=== PATIENT | male | born 1980 | race Caucasian/White ===

== ENCOUNTER → 2016-12-14 | Outpatient (CLI) | payer OTHER ==
[2016-12-14 12:31] LABS: BASOPHILS % (AUTO) 0 % (0-10); EOSINOPHILS # (AUTO) 0.1 10^3/uL (0.0-0.3); EOSINOPHILS % (AUTO) 1 % (0-10); LYMPHOCYTES # (AUTO) 2.1 X 10^3 (1.0-4.0); LYMPHOCYTES % (AUTO) 34 % (12-44); MEAN CORPUSCULAR HEMOGLOBIN 29 PG (25-34); MEAN CORPUSCULAR HGB CONC 35 G/DL (32-36); MEAN CORPUSCULAR VOLUME 82 FL (80-99); MEAN PLATELET VOLUME 11.2 FL (7.4-10.4); MONOCYTES # (AUTO) 0.4 X 10^3 (0.0-1.0); MONOCYTES % (AUTO) 7 % (0-12); NEUTROPHILS # (AUTO) 3.6 X 10^3 (1.8-7.8); NEUTROPHILS % (AUTO) 58 % (42-75); PLATELET COUNT 238 10^3/uL (130-400); RED CELL DISTRIBUTION WIDTH 13.8 % (10.0-14.5); WHITE BLOOD COUNT 6.3 10^3/uL (4.3-11.0)
[2016-12-14 12:36] LABS: BILIRUBIN,URINE NEGATIVE (NEGATIVE); KETONES,URINE 3+ (NEGATIVE); LEUKOCYTE ESTERASE ,URINE 3+ (NEGATIVE); NITRITE,URINE NEGATIVE (NEGATIVE); PH,URINE 5 (5-9); PROTEIN,URINE 2+ (NEGATIVE); UROBILINOGEN,URINE NORMAL (NORMAL)
[2016-12-14 12:45] LABS: ALANINE AMINOTRANSFERASE 56 U/L (0-55); ALBUMIN 4.4 GM/DL (3.2-4.5); ANION GAP 10 MMOL/L (5-14); ASPARTATE AMINO TRANSFERASE 30 U/L (5-34); BILIRUBIN,TOTAL 0.9 MG/DL (0.1-1.0); BLOOD UREA NITROGEN 11 MG/DL (7-18); BUN/CREATININE RATIO 12 (0-20); CALCIUM 9.4 MG/DL (8.5-10.1); CARBON DIOXIDE 26 MMOL/L (21-32); CHLORIDE 103 MMOL/L (98-107); CHOLESTEROL 228 MG/DL (< 200); DIRECT LDL 148 MG/DL (1-129); GFR ESTIMATED > 60; GLUCOSE 388 MG/DL (70-105); HEMOLYSIS 5 (-100-29); ICTERUS 0.7 (-100-1.9); LIPEMIA 3 (-100-49); SODIUM 139 MMOL/L (135-145); TOTAL PROTEIN 7.8 GM/DL (6.4-8.2); TRIGLYCERIDES 246 MG/DL (<150); VLDL CHOLESTEROL 49 MG/DL (5-40)
[2016-12-14 12:51] LABS: WBC,URINE 50-100 /HPF
== END ==
LOC: LAB 11:56
PROVIDERS: ATTEND Registered Nurse
DX: R63.1 Polydipsia (principal); R55 Syncope and collapse; R73.9 Hyperglycemia, unspecified; R63.4 Abnormal weight loss; B37.9 Candidiasis, unspecified
CPT/HCPCS: 36415; 80053; 80061; 81000; 82043; 83036; 84443; 85025; 87088

== ENCOUNTER 2018-12-21 15:55 | Emergency (ER) | payer OTHER ==
[~2018-12-21] VITALS: Ht 180.3 cm; Wt 142.9 kg
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
[2018-12-21] MEDS ORDERED: INSU100V5 SQ (16:17)
[2018-12-21] MEDS ORDERED: pravastatin (16:17)
[2018-12-21] MEDS ORDERED: INSU100V16 SQ (16:17)
[2018-12-21] MEDS ORDERED: METF-478 PO (16:17)
--- NOTE | 2018-12-21 17:00 | Diagnostic Imaging Report ---
PROCEDURE: CT head and CT cervical spine without contrast. TECHNIQUE: Multiple contiguous axial images were obtained through the brain and cervical spine without the use of intravenous contrast. Sagittal and coronal reformations through the cervical spine were then performed. Auto Exposure Controls were utilized during the CT exam to meet ALARA standards for radiation dose reduction. INDICATION: Head and neck pain. COMPARISON: None. FINDINGS: CT head: No intracranial hemorrhage, mass effect, hydrocephalus, or extra-axial fluid collections. No CT evidence of a territorial infarction. Osseous structures are intact. Mild mucosal thickening in the floor of the right maxillary sinus. The mastoids are clear. CT cervical spine: Normal alignment. Vertebral body heights are preserved. No fractures. No evidence high-grade spinal canal narrowing on soft tissue windows. The visualized paravertebral soft tissues are unremarkable. IMPRESSION: No acute intracranial or cervical spine CT findings. Dictated by: Dictated on workstation # [id number]
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
[2018-12-21] MEDS ORDERED: METH-313 PO (17:15)
[2018-12-21 17:23] VITALS: BP 136/101
== END 2018-12-21 17:23 | disposition home or self-care (01) ==
LOC: EDUNIT# 15:55 → ER 15:56
DX: S46.911A Strain of unspecified muscle, fascia and tendon at shoulder and upper arm level, right arm, initial encounter (principal); S16.1XXA Strain of muscle, fascia and tendon at neck level, initial encounter; R40.2142 Coma scale, eyes open, spontaneous, at arrival to emergency department; R40.2252 Coma scale, best verbal response, oriented, at arrival to emergency department; R40.2362 Coma scale, best motor response, obeys commands, at arrival to emergency department; Z79.4 Long term (current) use of insulin; V40.5XXA Car driver injured in collision with pedestrian or animal in traffic accident, initial encounter
CPT/HCPCS: 70450; 72125; 73000; 73030; 73060; 73090

== ENCOUNTER 2022-01-06 22:47 | Emergency (ER) | payer SELFPAY ==
[~2022-01-06 22:47] MED LIST: INSU100V16 SQ; INSU100V5 SQ; METF-478 PO; METH-313 PO; pravastatin
[2022-01-06 22:58] VITALS: BP 158/95
[2022-01-07 00:25] LABS: BASOPHILS % (AUTO) 1 % (0-10); EOSINOPHILS # (AUTO) 0.2 10^3/uL (0.0-0.3); EOSINOPHILS % (AUTO) 2 % (0-10); HEMATOCRIT 45 % (40-54); HEMOGLOBIN 15.7 g/dL (13.3-17.7); LYMPHOCYTES # (AUTO) 2.9 10^3/uL (1.0-4.0); LYMPHOCYTES % (AUTO) 33 % (12-44); MEAN CORPUSCULAR HEMOGLOBIN 29 pg (25-34); MEAN CORPUSCULAR HGB CONC 35 g/dL (32-36); MEAN CORPUSCULAR VOLUME 82 fL (80-99); MEAN PLATELET VOLUME 11.1 fL (9.0-12.2); MONOCYTES # (AUTO) 0.6 10^3/uL (0.0-1.0); MONOCYTES % (AUTO) 7 % (0-12); NEUTROPHILS # (AUTO) 5.2 10^3/uL (1.8-7.8); NEUTROPHILS % (AUTO) 59 % (42-75); PLATELET COUNT 218 10^3/uL (130-400); WHITE BLOOD COUNT 8.8 10^3/uL (4.3-11.0)
[2022-01-07 00:36] LABS: POTASSIUM 3.9 MMOL/L (3.6-5.0)
[2022-01-07 00:38] LABS: CALCIUM 9.2 MG/DL (8.5-10.1)
[2022-01-07 00:42] LABS: CREATININE SERUM 1.04 MG/DL (0.60-1.30)
[2022-01-07] MEDS ORDERED: cefTRIAXone 1 GM PRE-MIX 50 ML IV STA (01:16)
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
[2022-01-07] MEDS ORDERED: APIXABAN 5 MG (ELIQUIS) TABLET PO ONE (01:30)
[2022-01-07] MEDS ORDERED: CEPH500T PO ×2 (09:38)
== END 2022-01-07 01:30 | disposition home or self-care (01) ==
LOC: EDUNIT# 22:47 → ER 22:51
DX: S89.91XA Unspecified injury of right lower leg, initial encounter (principal); R79.1 Abnormal coagulation profile; R79.82 Elevated C-reactive protein (CRP); E11.9 Type 2 diabetes mellitus without complications; Z79.4 Long term (current) use of insulin; W22.8XXA Striking against or struck by other objects, initial encounter; Y92.59 Other trade areas as the place of occurrence of the external cause; Y99.0 Civilian activity done for income or pay
CPT/HCPCS: 36415; 80048; 85025; 85379; 86141

== ENCOUNTER → 2022-01-07 | Outpatient (CLI) | payer SELFPAY ==
[~2022-01-07] MED LIST changes: +CEPH500T PO
--- NOTE | 2022-01-07 09:58 | Diagnostic Imaging Report ---
EXAMINATION: US Right Lower Extremity Venous Duplex. TECHNIQUE: Multiple real-time grayscale images were obtained over the right lower extremity in various projections. Additional spectral analysis and color Doppler duplex images were also obtained. HISTORY: Right lower extremity pain and swelling. Elevated D-dimer. COMPARISON: None available. FINDINGS: The right common femoral vein, deep femoral vein, superficial femoral vein and popliteal vein are patent with normal alanis scale and doppler appearance. There is normal respiratory variation and augmentation. There is a superficial venous thrombus within the greater saphenous vein. IMPRESSION: 1. No DVT of the right lower extremity. 2. Superficial venous thrombus within the greater saphenous vein. Dictated by: Dictated on workstation # [id number]
== END ==
LOC: RAD 09:03
PROVIDERS: ATTEND Family Medicine
DX: I82.811 Embolism and thrombosis of superficial veins of right lower extremity (principal); S89.91XA Unspecified injury of right lower leg, initial encounter; X58.XXXA Exposure to other specified factors, initial encounter